=== PATIENT | male | born 1950 | race Caucasian/White ===

== ENCOUNTER 2023-12-02 15:09 | Emergency (ER) | payer OTHER, BC ==
[~2023-12-02] VITALS: Ht 167.6 cm; Wt 105.0 kg
[~2023-12-02 15:09] MED LIST: ACET-2708 MT; OLME20TA13; diabetic meds; ibuprofen
[2023-12-02 15:19] VITALS: O2SAT 98
[2023-12-02] MEDS ORDERED: CYCL10TA21 MT (18:28)
[2023-12-02] MEDS ORDERED: GABA-532 MT (18:28)
[2023-12-02] MEDS ORDERED: LIDO700A15 TP (18:28)
[2023-12-02] MEDS: CYCLOBENZAPRINE 10MG TABLET PO ONE (18:38)
[2023-12-02 18:41] VITALS: PULSE 70; TEMP 98.1
[2023-12-02 18:50] VITALS: BP 120/81; RESP 18
[2023-12-02] MEDS: LIDOCAINE 5% PATCH TOP SCH (18:50)
[2023-12-03] MEDS ORDERED: LIDOCAINE 5% PATCH TOP SCH (09:00)
== END 2023-12-02 18:52 | disposition home or self-care (01) ==
LOC: ER 15:09
DX: M54.50 Low back pain, unspecified (principal); M25.511 Pain in right shoulder; M25.512 Pain in left shoulder; I48.91 Unspecified atrial fibrillation; J45.909 Unspecified asthma, uncomplicated; I10 Essential (primary) hypertension; Z79.899 Other long term (current) drug therapy
CPT/HCPCS: 99283